=== PATIENT | male | born 1980 | race Caucasian/White ===

== ENCOUNTER 2023-10-04 14:50 | Emergency (ER) | payer BC, SELFPAY ==
--- NOTE | ~2023-10-04 | XR_ITS ---
EXAMINATION: XR chest 2V DATE: 10/04/2023 15:22 INDICATION: 2 months of productive cough TECHNIQUE: PA and lateral views of the chest were obtained. COMPARISON: None FINDINGS: Calcified nodule at the right lung base consistent with old granulomatous disease. No other airspace opacities, pulmonary edema, pleural effusion or pneumothorax. The cardiomediastinal silhouette is nor mal. Mild thoracic spondylosis with mild anterior wedging of a a few mid thoracic vertebral bodies. IMPRESSION: 1. No acute cardiopulmonary disease. Reviewed, dictated and finalized at location A. AGE [employer]
--- NOTE | 2023-10-04 15:03 | ED.URI ---
HPI - URI/Sore Throat General Chief Complaint: Upper Respiratory Infection Stated Complaint: cough,SOB,ribs hurt, left arm hurts Time Seen by Provider: 10/04/23 15:03 Source: patient Mode of arrival: ambulatory Limitations: no limitations History of Present Illness HPI Narrative: 42-year-old male presents with complaint of cough for 2 months. Her reports intermittent chest congestion, shortness of breath with exertion. Patient reports ribs sore from coughing. Not taking any [id number] cough medications to treat his symptoms. Patient was in [facility] 2 months. States after he got out of [facility] he started smoking again and cough started. Has gotten progressively worse. Does not have primary care physician for follow-up. Patient speaking in full sentences. All systems reviewed and negative except as noted above. Related Data Allergies Allergy/AdvReac Type Severity Reaction Status Date / Time Penicillins Allergy Mild Rash Verified 10/04/23 15:12 Review of Systems Review of Systems: CONSTITUTIONAL: Denies fever, chills, or sweats. EYES: Denies visual changes, redness, or discharge. ENT: Denies rhinorrhea, congestion, sore throat, or otalgia. CARDIOVASCULAR: Denies chest pain, palpitations, or edema. RESPIRATORY: Reports cough and dyspnea with exertion. GASTROINTESTINAL: Denies abdominal pain, nausea, vomiting, or diarrhea. GENITOURINARY: Denies dysuria or hematuria. SKIN: Denies rash or itching. MUSCULOSKELETAL: Denies back pain, joint pain, or myalgia. NEUROLOGIC: Denies headache, numbness, or weakness. PSYCHIATRIC: Denies anxiety or depression. All other systems reviewed are negative, except as documented in HPI. PMFSH Comments At time of signature, agree with nursing past medical, surgical, social and family history. There is no relevant family history pertinent to the presenting complaint. Exam Narrative: GENERAL: This is a well-nourished, well-developed patient, in no apparent distress. HEAD: normocephalic, atraumatic. EYES: PERRL. Sclera clear/white. Vision is grossly intact. EARS: External ears normal, auditory canals clear and without drainage, TMs normal without perforation. Hearing grossly intact. NOSE: External nose normal with no obvious nasal discharge, nares without redness, no rhinorrhea. THROAT: Mucous membranes moist, posterior pharynx clear. NECK: Neck supple, non-tender without lymphadenopathy, masses or thyromegaly. CARDIOVASCULAR: Regular rate and rhythm without murmurs, gallops, or rubs. RESPIRATORY: decreased throughout all lung gill. Breath sounds equal bilaterally. No wheezes, rales, or rhonchi. SKIN: warm, Dry, intact with no suspicious lesions or rash, good texture and turgor. NEURO: awake, alert, and oriented to person, place and time. There were no obvious focal neurologic abnormalities. EXTREMITIES: No joint tenderness, effusion, or edema noted. Course Course Level of Care: Express Care Visit Reevaluation(s) Reevaluation #1: patient complained of headache after albuterol neb. clear lung sounds noted reports some improvement in chest tightness but still feeling short of breath. Vital Signs Vital signs: Vital Signs Temperature 37.8 C H 10/04/23 15:06 Pulse Rate 132 H 10/04/23 15:06 Respiratory Rate 16 10/04/23 15:06 Blood Pressure 129/89 10/04/23 15:06 Pulse Oximetry 98 10/04/23 15:06 Oxygen Delivery Room Air 10/04/23 15:06 Temperature 37.5 C 10/04/23 16:00 Pulse Rate 118 H 10/04/23 16:18 Respiratory Rate 28 H 10/04/23 16:31 Blood Pressure 129/89 10/04/23 15:06 Pulse Oximetry 95 10/04/23 16:18 Oxygen Delivery Room Air 10/04/23 16:18 Reviewed MDM - URI/Sore Throat MDM Narrative Medical decision making narrative: Patient reported he continue to have chest tightness, mild shortness of breath after DuoNeb but did feel better. Did have some improvement in his lung sounds. SpO2 95% room air. Patient offered another cory
[2023-10-04 15:06] VITALS: BP 129/89; PULSE 132; RESP 16; TEMP 37.8; O2SAT 98
[2023-10-04] MEDS: predniSONE 20 MG TABLET 40 MG PO (15:25)
[2023-10-04] MEDS: ALBUTEROL SULFATE NEB 2.5 MG/3 ML INH INHALATION (15:26)
[2023-10-04] MEDS: IPRATROPIUM BR 0.02% INH SOLN 0.5 MG/2.5 ML VIAL INHALATION (15:26)
[2023-10-04 16:00] VITALS: PULSE 124; RESP 28; TEMP 37.5; O2SAT 91
[2023-10-04 16:18] VITALS: PULSE 118; O2SAT 95
[2023-10-04] MEDS: ACETAMINOPHEN 500 MG TABLET 1000 MG PO (16:26)
[2023-10-04 16:31] VITALS: RESP 28
== END 2023-10-04 16:31 | disposition home or self-care (01) ==
PROVIDERS: Emergency Provider Nurse Practitioner Family
DX: J20.9 Acute bronchitis, unspecified (principal)
CPT/HCPCS: 71046; 94640; 99213; A9270; G0463; J7512